=== PATIENT | male | born 1945 | race Caucasian/White ===

== ENCOUNTER → 2018-10-06 | Outpatient (CLI) | payer MEDICARE, OTHER | LOC: M.CT 07:47 | DX: C80.1 Malignant (primary) neoplasm, unspecified (principal); N26.1 Atrophy of kidney (terminal); M51.85 Other intervertebral disc disorders, thoracolumbar region; K57.30 Diverticulosis of large intestine without perforation or abscess without bleeding; N40.0 Benign prostatic hyperplasia without lower urinary tract symptoms ==